=== PATIENT | female | born 1970 | race Caucasian/White ===

== ENCOUNTER 2021-03-03 15:45 | Inpatient (IN) | payer BC ==
[~2021-03-03] VITALS: Ht 170.2 cm; Wt 128.1 kg
[2021-03-03 17:33] LABS: HEMOGLOBIN 13.9 gm/dl (12.3-15.3); RED BLOOD COUNT 4.82 M/UL (4.00-5.10); WHITE BLOOD COUNT 4.7 K/UL (4.5-11.0)
[2021-03-03 17:51] LABS: BUN/CREATININE RATIO 16 (0-10)
[2021-03-04 04:08] LABS: BUN/CREATININE RATIO 14 (0-10)
[2021-03-04 04:27] LABS: HEMOGLOBIN 12.8 gm/dl (12.3-15.3); RED BLOOD COUNT 4.44 M/UL (4.00-5.10); WHITE BLOOD COUNT 4.6 K/UL (4.5-11.0)
[2021-03-04] MEDS ORDERED: IBU400 MG PO (12:39)
[2021-03-05 08:10] LABS: BUN/CREATININE RATIO 16 (0-10)
[2021-03-06 07:48] LABS: BUN/CREATININE RATIO 16 (0-10)
[2021-03-06 21:31] LABS: ACINETOBACTER BAUMANNII Not Detected (Negative); CANDIDA ALBICANS Not Detected (Negative); CANDIDA KRUSEI Not Detected (Negative); CANDIDA TROPICALIS Not Detected (Negative); ENTEROCOCCUS Not Detected (Negative); ESCHERICHIA COLI Not Detected (Negative); HAEMOPHILUS INFLUENZAE Not Detected (Negative); KLEBSIELLA OXYTOCA Not Detected (Negative); KLEBSIELLA PNEUMONIAE Not Detected (Negative); KPC-CARBAPENEM-RESISTANCE GENE Not Detected (Negative); PROTEUS Not Detected (Negative); PSEUDOMONAS AERUGINOSA Not Detected (Negative); SERRATIA MARCESANS Not Detected (Negative); STAPHYLOCOCCUS AUREUS Not Detected (Negative); STREP AGALACTIAE (GROUP B) Not Detected (Negative); STREP PYOGENES (GROUP A) Not Detected (Negative); STREPTOCOCCUS Not Detected (Negative); mecA (METHICILLIN RESIST GENE Not Detected (Negative); vanA/B (VANCOMYCIN RESIST GENE Not Detected (Negative)
[2021-03-06 22:48] LABS: STAPHYLOCOCCUS DETECTED (Negative)
[2021-03-08 06:26] LABS: HEMOGLOBIN 12.1 gm/dl (12.3-15.3); RED BLOOD COUNT 4.32 M/UL (4.00-5.10); WHITE BLOOD COUNT 6.9 K/UL (4.5-11.0)
[2021-03-08 06:57] LABS: BUN/CREATININE RATIO 13 (0-10)
--- NOTE | 2021-03-08 12:37 | NUR ---
OXYGEN TAKEN DOWN FROM 10L TO 8L FOR APPROXIMATELY 30 MINUTES WITH SAT GREATER THAN 92%. OXYGEN TAKEN DOWN TO 5L FOR 1 HOUR SAT IS STAYING AROUND 95%
[2021-03-09 04:53] LABS: HEMOGLOBIN 12.9 gm/dl (12.3-15.3); RED BLOOD COUNT 4.53 M/UL (4.00-5.10)
[2021-03-09 05:07] LABS: BUN/CREATININE RATIO 19 (0-10)
[2021-03-09] MEDS ORDERED: DECADRON6 MG PO (16:01)
[2021-03-10 08:28] LABS: HEMOGLOBIN 13.6 gm/dl (12.3-15.3); RED BLOOD COUNT 4.77 M/UL (4.00-5.10); WHITE BLOOD COUNT 9.8 K/UL (4.5-11.0)
[2021-03-10 09:06] LABS: BUN/CREATININE RATIO 20 (0-10)
[2021-03-10] MEDS ORDERED: METFORMIN HCL500 M2 PO (10:29)
== END 2021-03-10 12:56 | disposition home or self-care (01) | DRG 177 ==
LOC: ER1 15:45 → CDU 20:25 → M/S 20:25
PROVIDERS: Emergency Medicine; Internal Medicine; Physician Assistant; ADMIT Internal Medicine
PROC: 3E0333Z Introduction of Anti-inflammatory into Peripheral Vein, Percutaneous Approach (ICD-10-PCS; principal; 2021-03-03)
PROC: XW033E5 Introduction of Remdesivir Anti-infective into Peripheral Vein, Percutaneous Approach, New Technology Group 5 (ICD-10-PCS; 2021-03-04)
PROC: 3E02340 Introduction of Influenza Vaccine into Muscle, Percutaneous Approach (ICD-10-PCS; 2021-03-04)
PROC: 8E0ZXY6 Isolation (ICD-10-PCS; 2021-03-05)
DX: U07.1 COVID-19 (principal); J12.82 Pneumonia due to coronavirus disease 2019; J96.01 Acute respiratory failure with hypoxia; E87.2 Acidosis; E87.1 Hypo-osmolality and hyponatremia; K52.9 Noninfective gastroenteritis and colitis, unspecified; R80.9 Proteinuria, unspecified; E87.6 Hypokalemia; E86.0 Dehydration; R94.5 Abnormal results of liver function studies; E11.65 Type 2 diabetes mellitus with hyperglycemia; E03.9 Hypothyroidism, unspecified; Z90.49 Acquired absence of other specified parts of digestive tract; Z98.51 Tubal ligation status; Z79.899 Other long term (current) drug therapy; Z79.84 Long term (current) use of oral hypoglycemic drugs
CPT/HCPCS: ECHO; 36415; 36600; 71045; 80048; 80053; 80202; 81001; 82550; 82553; 82803; 82962; 83036; 83735; 83874; 84484; 84703; 85025; 85027; 86140; 87040; 87077; 87150; 87186; 93306; 94760; 99285; G0378; J0456; J0696; J1100; J1650; J3370; J3480; J7030; J7070